=== PATIENT | male | born 1985 | race Caucasian/White ===

== ENCOUNTER 2024-09-20 10:39 | Emergency (ER) | payer OTHER ==
[~2024-09-20] VITALS: Ht 170.2 cm; Wt 77.3 kg
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
[2024-09-20] MEDS: morphine 4 MG/ML inj SYRINge IV ONE (10:59)
[2024-09-20] MEDS: ondansetron/PF 4mg/2ml inj IV ONE (10:59)
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
[2024-09-20 12:09] VITALS: BP 118/68; PULSE 89; RESP 15; O2SAT 97
== END 2024-09-20 12:59 | disposition home or self-care (01) ==
LOC: ER 10:40
DX: S62.346A Nondisplaced fracture of base of fifth metacarpal bone, right hand, initial encounter for closed fracture (principal); V49.40XA Driver injured in collision with unspecified motor vehicles in traffic accident, initial encounter; Y93.89 Activity, other specified; Y92.89 Other specified places as the place of occurrence of the external cause; Y99.8 Other external cause status
CPT/HCPCS: 29125; 73130; 96374; 96375; 99284; J2270; J2405; A6449